=== PATIENT | female | born 1985 | race Caucasian/White ===

== ENCOUNTER 2020-08-09 23:09 | Emergency (ER) | payer OTHER ==
[~2020-08-09] VITALS: Ht 165.1 cm; Wt 53.6 kg
--- NOTE | 2020-08-09 23:21 | PHYS DOC ---
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 I ve had pancreatitis.... I had a tumor remove in 1998 a. Wipple procedure at [facility] in [facility].. .. but I still get occasional exacerbations.... Usually it is take Tylenol at home..... But denied I had some chest pain with it..." "If my amylase and lipase are up they usually put on IV fluids and anti acid for couple days.." Patient is a 34 year old female dependent who presents with above hx and complaints of epigastric and chest pain. Patient states the epigastric pain is similar to her prior episodes of pancreatitis flares. Patient denies any history of previous chest pain or cardiac disorders. 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 Patient denies any travel. Patient denies any intake bad food. No history of trauma. Patient normally follows at [place] for care. No history of alcohol intake. No history of immunosuppression. Did have first Covid vaccination approximate week ago her cycle is due on September 01. Patient had Moderna COVID vaccination. Review of Systems: Review of Systems: Constitutional: Denies fever or chills Eyes: Denies change in visual acuity HENT: Denies nasal congestion or sore throat Respiratory: Denies cough or shortness of breath Cardiovascular: Complaints of epigastric chest pain GI: Complains of epigastric abdominal pain, nausea,. Vomiting, bloody stools or diarrhea : Denies dysuria Musculoskeletal: Denies back pain or joint pain Integument: Denies rash Neurologic: Denies headache, focal weakness or sensory changes Endocrine: Denies polyuria or polydipsia Lymphatic: Denies swollen glands Psychiatric: Denies depression or anxiety Family History: Family History: Noncontributory to presentation Current Medications: Current Meds: See nursing for home meds Allergies: Allergies: No known drug allergies Physical Exam: PE: Constitutional moderate acute distress, non-toxic appearance. [] HENT: Normocephalic, atraumatic, bilateral external ears normal, oropharynx moist, no oral exudates, nose normal. [] Eyes: PERRLA, EOMI, conjunctiva normal, no discharge. [] Neck: Normal range of motion, no tenderness, supple, no stridor. [] Cardiovascular: Bradycardia heart rate regular rhythm, no murmur [] Lungs & Thorax: Bilateral breath sounds clear to auscultation [] Abdomen: Bowel sounds normal, soft, epigastric tenderness, no masses, no pulsatile masses. Large Whipple upside down V shaped scar in upper abdomen. Rebound epigastric area. Distended abdomen. Skin: Warm, dry, no erythema, no rash. Poor turgor. Back: No tenderness, no CVA tenderness. [] Extremities: No tenderness, no cyanosis, no clubbing, ROM intact, no edema. [] Neurologic: Alert and oriented X 3, normal motor function, normal sensory function, no focal deficits noted. [] No psoas sign. Psychologic: Affect anxious, judgement normal, mood normal. [] EKG: EKG: My interpretation EKG shows a sinus bradycardia rhythm at 51 bpm. No acute morphology appreciated. Radiology/Procedures: Radiology/Procedures: [][address] [address] IMAGING REPORT Signed PATIENT: KEV WALDEN KAOUNT: [id number] : 1985 LOCATION: ER AGE: 34 SEX: F EXAM STATUS: REG ER ORD. PHYSICIAN: BENITA ROY MD REASON: Abdomen pain PROCEDURE: ACUTE ABDOMEN SERIES Study: XR ABDOMEN COMP ACUTE Indication: Abdominal pain. Comparison: None. Findings: Unremarkable cardiomediastinal silhouette and hakan. No confluent infiltrate, pleural effusion or pneumothorax. The bowel gas pattern is nonobstructive. Mild to moderate volume well-formed stool within the colon. No pneumoperitoneum. Impression: 1. Nonobstructive bowel gas pattern. 2. Mild/moderate constipation. 3. Unremarkable chest. Electronically signed by: KIM ELIZABETH MD (08/10/2020 12:10 AM) [facility] DICTATED AND SIGNED BY: KIM ELIZABETH MD DATE: 08/10/20 0009 CC: BENITA ROY MD; PRITESH VELÁSQUEZ MD ~MTH0 [address] [address] IMAGING REPORT Signed PATIENT: KEV WALDENOUNT: [id number] : 1985 LOCATION: ER AGE: 34 SEX: F EXAM STATUS: REG ER ORD. PHYSICIAN: BENITA ROY MD REASON: Abdomen pain Omni 300 75cc PROCEDURE: CT ABD PELV W/ORAL&IV CONTRAST Study: CT abdomen/pelvis with intravenous contrast Indication: Abdominal pain. Comparison: No prior CT is available for review. Technique: Helical CT imaging performed of the abdomen and pelvis after the intravenous administration of 75 cc Omnipaque 300 contrast. Sagittal and coronal reformats were obtained. One or more of the following individualized dose reduction techniques were utilized for this examination: 1. Automated exposure control 2. Adjustment of the mA and/or kV according to patient size 3. Use of iterative reconstruction technique. Findings: Chest: Unremarkable visualized lungs and mediastinal contents. Liver: Heterogeneous attenuation involving the upper more so than lower aspects of the right hepatic lobe. The liver measures mildly enlarged at approximately 19 cm craniocaudal on image 19 series 3. Gallbladder/Biliary Tree: Localized portal venous gas to the left hepatic lobe. The gallbladder is absent. Poorly delineated common duct given sequela of a Whipple procedure. No significant intrahepatic ductal dilatation. Pancreas: Only the body and tail of the pancreas is visualized in the setting of a Whipple procedure. There is the suggestion of peripancreatic edema along the body segment without findings of parenchymal necrosis. No ductal dilatation. Spleen: Within normal limits for size. Adrenal Glands: No adrenal gland mass. Kidneys/Ureters/Bladder: Symmetric renal enhancement. No hydronephrosis. Unremarkable bladder. Reproductive Organs: Boggy appearance of the uterus which is nonspecific given patient age and could be related to the menstrual stage. Possible cyst or cysts with crenulated margins on the left also not beyond what is often seen in a patient this age. Colon: Mild/moderate degree of constipation. Appendix: A portion of the appendix appears to be seen on image 62 series 2. No evidence for appendicitis. Small Bowel: Orally administered contrast passes through much of the colon. No collapse of the distal colon to suggest obstruction. Fecalization of enteric material at the ileum typical of slow transit/constipation. Somewhat irregular course of the small bowel with preferential distribution in the right aspect of the abdomen could be a manifestation of previous surgery. No inversion of the SMV/SMA relationship to suggest this is from malrotation. Stomach: No apparent gastric mass. Vasculature: Patent central portal veins, central superior mesenteric vein and splenic vein. Nonaneurysmal aorta. Engorged left ovarian vein and mildly engorg ed pelvic veins. Lymph Nodes: Within normal limits. Peritoneum and Body Wall: Small volume free pelvic fluid. Bones: No acute fracture or traumatic malalignment. No evidence for femoral head avascular necrosis. Miscellaneous: None. Impression: 1. There appears to be some edema along the pancreatic body suggesting mild pancreatitis. No evidence for parenchymal necrosis. 2. Sequela of Whipple procedure with small volume pneumobilia likely iatrogenic. No bowel obstruction. 3. Mildly enlarged liver which exhibits heterogeneous parenchymal attenuation within the upper more so than lower aspect of the right hepatic lobe. The appe arance is nonspecific but recommend correlation with liver function tests to exclude hepatitis. 4. Mild/moderate constipation. 5. Boggy appearance of the uterus and small volume free pelvic fluid favored most likely physiologic given patient age. Electronically signed by: KIM ELIZABETH MD (08/10/2020 1:32 AM) [facility] DICTATED AND SIGNED BY: KIM ELIZABETH MD DATE: 08/10/20 0115 CC: BENITA ROY MD; PRITESH VELÁSQUEZ MD ~MTH0 0 Heart Score: C/O Chest Pain: Yes HEART Score for Chest Pain: HEART Score for Chest Pain Response (Comments) Value History Slighlty/Non-Suspicious 0 ECG Normal 0 Age < 45 0 Risk Factors 1 or 2 Risk Factors 1 Troponin < Normal Limit 0 Total 1 Risk Factors: Risk Factors: DM, Current or recent (<one month) smoker, HTN, HLP, family history of CAD, obesity. Risk Scores: Score 0 - 3: 2.5% MACE over next 6 weeks - Discharge Home Score 4 - 6: 20.3% MACE over next 6 weeks - Admit for Clinical Observation Score 7 - 10: 72.7% MACE over next 6 weeks - Early Invasive Strategies Course & Med Decision Making: Course & Med Decision Making Pertinent Labs and Imaging studies reviewed. (See chart for details) Patient first requesting admission . Discussed presentation, testing and treatment plan with . Advised admit to his service at [facility]. On reexam patient at 0200 hrs. patient states she felt much better and declining admission at this time. Will be discharged home on Pepcid 20 mg twice a day. Zofran 8 mg at 4 times a day for nausea and vomiting. Patient return if any concerns. Impression; 1. Chest pain 2. History of pancreatitis 3. History of Whipple's 1999-pancreatic mass 4. Constipation 5. Elevated Lipased 1,762 [] Dragon Disclaimer: Dragon Disclaimer: This electronic medical record was generated, in whole or in part, using a voice recognition dictation system. Departure Departure: Referrals: PRITESH VELÁSQUEZ MD (PCP) Scripts Ondansetron Hcl (ZOFRAN) 4 Mg Tablet 8 MG PO QIDPRN PRN for NAUSEA/VOMITING, #30 TAB Prov: BENITA ROY MD 08/10/20 Famotidine (PEPCID) 20 Mg Tablet 20 MG PO BID for pancreatitis for 30 Days, #60 TAB Prov: BENITA ROY MD 08/10/20 Micky Disclaimer This chart was dictated in whole or in part using Voice Recognition software in a busy, high-work load, and often noisy Emergency Department environment. It may contain unintended and wholly unrecognized errors or omissions. BENITA ROY MD Aug 09, 2020 23:20
[2020-08-09] MEDS ORDERED: ONDANSETRON PF 4 MG/2 ML VIAL. IVP ONE (23:30)
[2020-08-09] MEDS ORDERED: IOHEXOL 300 MG/ML 75 ML VIAL. IV ONE (23:30)
[2020-08-09] MEDS ORDERED: IV RINGERS SOLUTION,LACTATED 1,000 ML IV SCH (23:30)
[2020-08-09] MEDS ORDERED: FAMOTIDINE 20 MG/2 ML VIAL IVP ONE (23:30)
[2020-08-09] MEDS ORDERED: IOHEXOL 240 MG/ML 50ML VIAL. ONE (23:48)
[2020-08-09 23:50] LABS: BASO # 0.1 x10^3/uL (0.0-0.2); BASO % 1 % (0-3); EOS # 0.3 x10^3/uL (0.0-0.7); EOS % 5 % (0-3); LYMPH # 2.5 x10^3/uL (1.0-4.8); LYMPH % 47 % (24-48); MEAN CORPUSCULAR HEMOGLOBIN 30 pg (25-35); MEAN CORPUSCULAR HGB CONC 34 g/dL (31-37); MEAN CORPUSCULAR VOLUME 91 fL (79-100); MONO # 0.6 x10^3/uL (0.0-1.1); MONO % 11 % (0-9); NEUT # 1.8 x10^3uL (1.8-7.7); NEUT % 35 % (31-73); PLATELET COUNT 207 x10^3/uL (140-400); RED BLOOD COUNT 3.96 x10^6/uL (3.50-5.40); RED CELL DISTRIBUTION WIDTH 13.5 % (11.5-14.5); WHITE BLOOD COUNT 5.2 x10^3/uL (4.0-11.0)
[2020-08-09 23:59] LABS: BARBITURATES NEG (NEG); BENZODIAZEPINES NEG (NEG); CANNABINOIDS NEG (NEG); COCAINE NEG (NEG); METHADONE NEG (NEG); OPIATES NEG (NEG); PHENCYCLIDINE NEG (NEG)
[2020-08-10 00:01] LABS: AMPHETAMINE/METHAMPHETAMINE NEG (NEG)
[2020-08-10 00:04] LABS: CALCIUM 8.8 mg/dL (8.5-10.1); CREATININE 0.8 mg/dL (0.6-1.0); GFR 82.6; POTASSIUM 3.7 mmol/L (3.5-5.1)
[2020-08-10 00:08] LABS: DIRECT BILIRUBIN 0.1 mg/dL (0.0-0.2); TOTAL BILIRUBIN 0.4 mg/dL (0.2-1.0); TOTAL PROTEIN 7.7 g/dL (6.4-8.2)
--- NOTE | 2020-08-10 00:13 | RAD ---
Study: XR ABDOMEN COMP ACUTE Indication: Abdominal pain. Comparison: None. Findings: Unremarkable cardiomediastinal silhouette and hakan. No confluent infiltrate, pleural effusion or pneu mothorax. The bowel gas pattern is nonobstructive. Mild to moderate volume well-formed stool within the colon. No pneumoperitoneum. Impression: 1. Nonobstructive bowel gas pattern. 2. Mild/moderate constipation. 3. Unremarkable chest. Electronically signed by: KIM ELIZABETH MD (08/10/2020 12:10 AM) [facility]
[2020-08-10] MEDS ORDERED: CONTRAST GIVEN. MC PRN (00:15)
[2020-08-10 00:17] LABS: BACTERIA,URINE 0 /HPF (0-FEW); BILIRUBIN,URINE NEG (NEG); CLARITY,URINE CLEAR; COLOR,URINE YELLOW; GLUCOSE,URINE NEG (NEG); NITRITE,URINE NEG (NEG); RBC,URINE 0 /HPF (0-2); SQUAMOUS EPITHELIAL CELL,UR MOD /LPF; UROBILINOGEN,URINE 0.2 mg/dL (0.2 mg/dL); WBC,URINE 0 /HPF (0-4)
[2020-08-10 00:23] VITALS: BP 117/74
--- NOTE | 2020-08-10 01:34 | RAD ---
Study: CT abdomen/pelvis with intravenous contrast Indication: Abdominal pain. Comparison: No prior CT is available for review. Technique: Helical CT imaging performed of the abdomen and pelvis after the intravenous administratio n of 75 cc Omnipaque 300 contrast. Sagittal and coronal reformats were obtained. One or more of the following individualized dose reduction techniques were utilized for this examinat ion: 1. Automated exposure control 2. Adjustment of the mA and/or kV according to patient size 3. Use of iterative reconstruction technique. Findings: Chest: Unremarkable visualized lungs and mediastinal contents. Liver: Heterogeneous attenuation involving the upper more so than lower aspects of the right hepatic lobe. The liver measures mildly enlarged at approximately 19 cm craniocaudal on image 19 series 3. Gallbladder/Biliary Tree: Localized portal venous gas to the left hepatic lobe. The gallbladder is ab sent. Poorly delineated common duct given sequela of a Whipple procedure. No significant intrahepatic ductal dilatation. Pancreas: Only the body and tail of the pancreas is visualized in the setting of a Whipple procedure. There is the suggestion of peripancreatic edema along the body segment without findings of parenchym al necrosis. No ductal dilatation. Spleen: Within normal limits for size. Adrenal Glands: No adrenal gland mass. Kidneys/Ureters/Bladder: Symmetric renal enhancement. No hydronephrosis. Unremarkable bladder. Reproductive Organs: Boggy appearance of the uterus which is nonspecific given patient age and could be related to the menstrual stage. Possible cyst or cysts with crenulated margins on the left also no t beyond what is often seen in a patient this age. Colon: Mild/moderate degree of constipation. Appendix: A portion of the appendix appears to be seen on image 62 series 2. No evidence for appendic itis. Small Bowel: Orally administered contrast passes through much of the colon. No collapse of the distal colon to suggest obstruction. Fecalization of enteric material at the ileum typical of slow transit/ constipation. Somewhat irregular course of the small bowel with preferential distribution in the righ t aspect of the abdomen could be a manifestation of previous surgery. No inversion of the SMV/SMA rel ationship to suggest this is from malrotation. Stomach: No apparent gastric mass. Vasculature: Patent central portal veins, central superior mesenteric vein and splenic vein. Nonaneur ysmal aorta. Engorged left ovarian vein and mildly engorged pelvic veins. Lymph Nodes: Within normal limits. Peritoneum and Body Wall: Small volume free pelvic fluid. Bones: No acute fracture or traumatic malalignment. No evidence for femoral head avascular necrosis. Miscellaneous: None. Impression: 1. There appears to be some edema along the pancreatic body suggesting mild pancreatitis. No evidenc e for parenchymal necrosis. 2. Sequela of Whipple procedure with small volume pneumobilia likely iatrogenic. No bowel obstructio n. 3. Mildly enlarged liver which exhibits heterogeneous parenchymal attenuation within the upper more so than lower aspect of the right hepatic lobe. The appearance is nonspecific but recommend correlati on with liver function tests to exclude hepatitis. 4. Mild/moderate constipation. 5. Boggy appearance of the uterus and small volume free pelvic fluid favored most likely physiologic given patient age. Electronically signed by: KIM ELIZABETH MD (08/10/2020 1:32 AM) [facility]
[2020-08-10] MEDS ORDERED: FAMO-63 PO (01:53)
[2020-08-10] MEDS ORDERED: ONDA4TAB7 PO (01:53)
[2020-08-10] MEDS ORDERED: MAGNESIUM HYDROXIDE 2,400 MG/30 ML ORAL.SUSP. PO ONE (02:00)
[2020-08-10] MEDS ORDERED: MAGNESIUM HYDROXIDE 2,400 MG/30 ML ORAL.SUSP. ONE (02:01)
--- NOTE | 2020-08-10 03:36 | EKG ---
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
== END 2020-08-10 02:04 | disposition home or self-care (01) ==
LOC: ER 23:09
DX: R07.89 Other chest pain (principal); R10.13 Epigastric pain; K59.00 Constipation, unspecified; R74.8 Abnormal levels of other serum enzymes; R11.2 Nausea with vomiting, unspecified
CPT/HCPCS: 36415; 74022; 74177; 80048; 80076; 80307; 81001; 81025; 82150; 82550; 83690; 84484; 84702; 85025; 85610; 85730; 93005; 96360; 99285; J7120; Q9967